=== PATIENT | female | born 1995 | race Caucasian/White ===

== ENCOUNTER 2024-04-28 01:10 | Emergency (ER) | payer OTHER ==
[~2024-04-28] VITALS: Ht 162.6 cm; Wt 77.1 kg
[2024-04-28] MEDS ORDERED: PROP10 PO (06:10)
[2024-04-28] MEDS ORDERED: PRAZ1 PO (06:11)
[2024-04-28] MEDS ORDERED: ALBU90OI INH (06:12)
[2024-04-28] MEDS ORDERED: Cymbalta20 MG PO (06:12)
[2024-04-28] MEDS ORDERED: Dexamethasone Sod Phos 10 MG/ML 1ML VIAL PO ONE (06:30)
[2024-04-28] MEDS ORDERED: Loratadine 10 MG Tab PO ONE (06:30)
[2024-04-28] MEDS ORDERED: EPIPEN0.3 MG/0.3 IM (06:31)
== END 2024-04-28 06:44 | disposition home or self-care (01) ==
LOC: ER 01:10
DX: T63.441A Toxic effect of venom of bees, accidental (unintentional), initial encounter (principal); L50.9 Urticaria, unspecified; Z79.899 Other long term (current) drug therapy; Z88.1 Allergy status to other antibiotic agents
CPT/HCPCS: 99283; A9270; J1100